=== PATIENT | male | born 1940 | race Caucasian/White ===

== ENCOUNTER → 2018-10-03 12:44 | Outpatient (CLI) | payer MEDICARE ==
[2014-07-06 22:04] VITALS: BMI 28.5
[~2018-10-03 12:44] MED LIST: ALIGN4 MG PO; ATENOLOL25 MG PO; CHLOROTHIAZIDE250 MG OR; COZAAR100 MG PO; EFFEXOR XR150 MG PO; HYDROCHLOROTHIA50 MG PO; HYDROCODONE-APA1 TAB PO; LANTUS SOL100 UNIT/1 SC; NEURONTIN 300300 MG OR; NORVASC10 MG PO; NOVOLOG100 U/M1 SC; PREVACID15 MG PO; SYNTHROID112 MCG PO
== END | disposition home or self-care (01) ==
LOC: D.RAD 12:44
DX: R13.10 Dysphagia, unspecified (principal)